=== PATIENT | female | born 1955 | race Caucasian/White ===

== ENCOUNTER 2021-03-25 14:23 | Emergency (ER) | payer SELFPAY ==
[~2021-03-25 14:23] MED LIST: Iopamidol 370 76% 100 ML VIAL ONE
[2021-03-25 15:03] LABS: #Basophils 0.1 thou/uL (0.0-0.2); #Eosinphils 0.1 thou/uL (0.0-0.7); #Lymphocytes 1.3 thou/uL (1.20-3.40); #Monocytes 0.7 thou/uL (0.11-0.59); #Neutrophils 5.3 thou/uL (1.40-6.50); %Basophils 1.1 % (0.0-1.0); %Eosinophils 1.7 % (0.0-10.0); %Lymphocytes 17.7 % (21.0-51.0); %Neutrophils 70.6 % (42.0-75.0); Hemoglobin 14.7 g/dL (12.0-16.0); Mean Corpuscular HGB CONC 31.9 g/dL (32.0-36.0); Mean Corpuscular Hemoglobin 30.9 pg (27.0-31.0); Mean Corpuscular Volume 97.1 fL (78.0-98.0); Mean Platelet Volume 8.1 fL (7.4-10.4); Platelet Count 204 thou/uL (130-400); RBC Distribution Width 13.6 % (11.5-14.5); Red Blood Cell (RBC) Count 4.74 mill/uL (4.20-5.40); White Blood Cell (WBC) Count 7.5 thou/uL (4.8-10.8)
[2021-03-25 15:14] LABS: Carbon Dioxide 24 mmol/L (23-31); Chloride 101 mmol/L (98-107); Potassium 4.4 mmol/L (3.5-5.1); Sodium 141 mmol/L (136-145)
[2021-03-25 15:15] LABS: ALT (SGPT) 19 U/L (8-55); AST (SGOT) 12 U/L (5-34); Albumin 4.3 g/dL (3.4-4.8); Alkaline Phosphatase 60 U/L (40-110); Anion Gap 20 mmol/L (10-20); BUN (Urea Nitrogen) 19 mg/dL (9.8-20.1); Bilirubin, Total 0.5 mg/dL (0.2-1.2); Calc. Creatinine Clearance 0 mL/min (70-130); Calcium 9.4 mg/dL (7.8-10.44); Globulin 3.4 g/dL (2.4-3.5); Glucose 93 mg/dL (80-115); Protein, Total 7.7 g/dL (5.8-8.1)
[2021-03-25 15:43] LABS: SARS-CoV-2 NAA Rapid Test Not Detected (NotDetected)
[2021-03-25] MEDS ORDERED: Aspirin Chewable 81 MG TAB ONE (16:14)
[2021-03-25] MEDS ORDERED: Nitroglycerin 2% Ointment 1 INCH/1 GM Packet ONE (16:14)
[2021-03-25 18:55] LABS: Lactic Acid 0.7 mmol/L (0.5-2.2)
[2021-03-25 19:03] LABS: Troponin I Less than 0.010 ng/mL (< 0.028)
== END 2021-03-25 19:42 | disposition home or self-care (01) ==
LOC: NAV ERS 14:23
DX: J44.9 Chronic obstructive pulmonary disease, unspecified (principal); R06.00 Dyspnea, unspecified; I27.20 Pulmonary hypertension, unspecified; E78.5 Hyperlipidemia, unspecified; I11.0 Hypertensive heart disease with heart failure; I50.9 Heart failure, unspecified; F17.210 Nicotine dependence, cigarettes, uncomplicated; Z20.822 Contact with and (suspected) exposure to COVID-19
CPT/HCPCS: 71045; 71275; 80053; 83605; 83880; 84484; 85025; 85379; 93005; J7620; Q9967; U0002

== ENCOUNTER 2021-11-20 11:56 | Emergency (ER) | payer OTHER, MEDICARE ==
[2021-11-20] MEDS ORDERED: Boostrix 0.5 ML (Tdap) VIAL (>/=7 yrs of age) ONE (12:45)
[2021-11-20] MEDS ORDERED: Bacitracin 1 PK ONE (12:45)
[2021-11-20] MEDS ORDERED: Morphine 4 MG/ML VIAL ONE (13:37)
[2021-11-20] MEDS ORDERED: Ondansetron ODT 4 MG TAB ONE (13:37)
== END 2021-11-20 14:14 | disposition home or self-care (01) ==
LOC: NAV ERS 11:56
DX: S92.422A Displaced fracture of distal phalanx of left great toe, initial encounter for closed fracture (principal); S62.511A Displaced fracture of proximal phalanx of right thumb, initial encounter for closed fracture; S39.012A Strain of muscle, fascia and tendon of lower back, initial encounter; S80.01XA Contusion of right knee, initial encounter; E11.9 Type 2 diabetes mellitus without complications; I10 Essential (primary) hypertension; E78.5 Hyperlipidemia, unspecified; I25.2 Old myocardial infarction; J44.9 Chronic obstructive pulmonary disease, unspecified; F17.200 Nicotine dependence, unspecified, uncomplicated; W19.XXXA Unspecified fall, initial encounter
CPT/HCPCS: 26725; 90471; 90715; J2270; Q0162

== ENCOUNTER 2023-02-09 15:47 | Outpatient (CLI) | payer MEDICARE, OTHER | END 2023-02-09 15:48 | disposition home or self-care (01) | LOC: NAV RAD 15:47 | PROVIDERS: ATTEND Nurse Practitioner Family | DX: M25.522 Pain in left elbow (principal); R07.81 Pleurodynia; W19.XXXA Unspecified fall, initial encounter ==

== ENCOUNTER 2024-02-13 14:29 | Outpatient (CLI) | payer MEDICARE, OTHER | END 2024-02-13 14:30 | disposition home or self-care (01) | LOC: NAV RAD 14:29 | PROVIDERS: ATTEND Nurse Practitioner Family | DX: R22.31 Localized swelling, mass and lump, right upper limb (principal) ==